=== PATIENT | female | born 1970 | race Caucasian/White ===

== ENCOUNTER → 2022-06-26 | Outpatient (CLI) | payer SELFPAY ==
--- NOTE | 2022-06-26 10:54 | STRESSREP ---
Stress Test Report Date: 06/26/2022 Procedure: Exercise tolerance test/imaging study Indications: Dyspnea Consent: Per the patient Procedure: The patient exercised on a Tone protocol for 4 minutes and 30 seconds achieving a peak heart rate of 155 bpm (92% predicted maximal heart rate) with a peak blood pressure 142/80 mmHg and a peak MET capacity of 7.0 METs. The baseline ECG demonstrated normal sinus rhythm with nonspecific ST changes. The peak exercise ECG demonstrated exaggeration of the baseline ST depression in inferior leads. Consider nondiagnostic in view of baseline changes. There were no cardiac dysrhythmias pretest, during exercise, or recovery. The functional capacity was considered suboptimal. There was no complaints of chest discomfort during exercise or recovery. Patient did however have dyspnea and wheezing with exercise. The examination was discontinued secondary to target heart rate being achieved along with dyspnea/wheezing. The patient was injected with 11.1 mCi of technetium 99m Cardiolite and subsequently rest SPECT Cardiolite nuclear imaging was obtained in the horizontal long, vertical long, and short axis views. Post-exercise, the patient was injected with 33.9 mCi of technetium 99m Cardiolite and subsequently stress SPECT Cardiolite nuclear imaging was obtained in the horizontal long, vertical long, and short axis views. A gated Cardiolite study at peak stress was obtained. Rest and stress SPECT Cardiolite nuclear imaging status post realignment, normalization, and attenuation correction, demonstrates the appearance of relative uniform tracer uptake and myocardial perfusion appearing within normal limits. There is end systolic thickening and brightening. The gated Cardiolite study demonstrates myocardial thickening and inward wall motion. The reported LVEF is 67%. Impression: 1. Technically adequate (percent predicted maximal heart rate greater than 85%) exercise tolerance test 2. Peak exercise ECG with horizontal ST depression in inferior leads. However considered nondiagnostic in view of baseline abnormality. 3. There were no cardiac dysrhythmias pretest, during exercise, or recovery 4. Rest and stress SPECT Cardiolite nuclear imaging demonstrate no fixed or reversible perfusion defects. 5. The gated Cardiolite study reports an LVEF of 67%. This note was generated with [employer] incation software. It may contain incorrect words, spelling, and punctuation that were not noted in checking the note before signing.
== END | disposition home or self-care (01) ==
LOC: CVS 07:04
PROVIDERS: PCP Internal Medicine; Referring Provider Internal Medicine; Visit Provider Internal Medicine
DX: R06.09 Other forms of dyspnea (principal)
CPT/HCPCS: 78452; 93017; A9500; A4216

== ENCOUNTER → 2022-08-05 | Outpatient (CLI) | payer SELFPAY ==
--- NOTE | 2022-08-05 10:50 | ECHOD_ITS ---
Reason For Study: DYSPNEA Procedure This was a 2D Doppler, Color Flow transthoracic echocardiogram. Exam performed in department. Left Ventricle Normal size and thickness. The left ventricular ejection fraction is 65 %. Normal diastology for age. Right Ventricle Normal right ventricle. Atria The left and right atria are normal. Mitral Valve Trivial mitral valve insufficiency. Tricuspid Valve Trivial tricuspid valve insufficiency. Unable to estimate RV systolic pressure due to insufficient tricuspid regurgitant envelope. Aortic Valve Normal aortic valve. Pulmonic Valve The pulmonic valve is not well visualized. Great Vessels Normal sized aortic root. Pericardium/Pleural No pericardial effusion. MMode/2D Measurements & Calculations LVIDd: 4.2 cm IVSd: 0.78 cm Ao root diam: 2.4 cm LVIDs: 2.6 cm LVPWd: 0.50 cm RVDd: 2.8 cm FS: 37.6 % LAV(MOD-bp): 41.2 ml LVAd ap4: 24.5 cm2 SV(MOD-sp4): 37.0 ml LAV(MOD-bp) Indexed: 26.3 ml/m2 LVLd ap4: 7.6 cm LAV(MOD-sp2): 50.8 ml EDV(MOD-sp4): 66.5 ml LAV(MOD-sp4): 33.0 ml EDV(sp4-el): 67.3 ml LVAs ap4: 14.5 cm2 LVLs ap4: 6.0 cm ESV(MOD-sp4): 29.6 ml ESV(sp4-el): 29.7 ml EF(MOD-sp4): 55.5 % EF(sp4-el): 55.9 % SV(sp4-el): 37.6 ml LA A4 area: 14.9 cm2 LA dimension(2D): 3.0 cm RA A4 area: 14.2 cm2 Time Measurements MV dec time: 0.17 sec Doppler Measurements & Calculations MV E max juan: 90.8 cm/sec Lat Peak E' Juan: 15.4 cm/sec Med Peak E' Juan: 11.2 cm/sec MV A max juan: 71.1 cm/sec E/E' lat: 5.9 E/E' med: 8.1 MV E/A: 1.3 MV V2 max: 93.1 cm/sec Ao V2 max: 118.3 cm/sec MV max P.5 mmHg MV dec slope: 569.7 cm/sec2 Ao max P.6 mmHg MV V2 mean: 56.0 cm/sec Ao V2 mean: 84.8 cm/sec MV mean P.4 mmHg Ao mean P.2 mmHg MV V2 VTI: 34.3 cm Ao V2 VTI: 30.5 cm AV (velocity ratio): 0.94 LV V1 max: 116.7 cm/sec PA V2 max: 87.1 cm/sec LV V1 max P.5 mmHg PA V2 mean: 65.8 cm/sec LV V1 mean P.1 mmHg LV V1 mean: 82.1 cm/sec LV V1 VTI: 28.7 cm ECHO/Echo Complete Interpretation Summary The left ventricular ejection fraction is 65 %. Ordering Physician: Sancho Gottlieb Referring Physician: Sancho Gottlieb Performed By: Lisa Mac [facility]
== END | disposition home or self-care (01) ==
LOC: CVS 10:49
PROVIDERS: PCP Internal Medicine; Referring Provider Internal Medicine Cardiovascular Disease; Visit Provider Internal Medicine Cardiovascular Disease
DX: R06.09 Other forms of dyspnea (principal); R07.9 Chest pain, unspecified
CPT/HCPCS: 93306

== ENCOUNTER → 2023-07-06 | Outpatient (CLI) | payer OTHER, SELFPAY ==
--- NOTE | 2023-07-06 06:54 | RAD_ITS ---
HISTORY: Dyspnea on exertion, wheezing, ? tracheal stenosis. TECHNIQUE: XR Chest 2 Views. COMPARISON: 01/04/2009. FINDINGS: CARDIOMEDIASTINAL BORDERS: Cardiac silhouette within normal limits in size. Mediastinal contour unremarkable. LUNGS: Radiographically clear. Mild hyperinflation. PLEURA: No pleural effusion or pneumothorax seen. OSSEOUS STRUCTURES: Unremarkable. RAD/Chest PA and Lateral IMPRESSION: No acute cardiopulmonary process identified. Electronically Signed: Vivienne Delacruz MD at 8:49 EST ,
--- OUTSIDE RECORDS SUMMARY | 2023-07-06 06:57 | XMS RPT_ITS | CCD ---
Author Name Unknown Address [address] [place] [address] Organization [facility] Care Team Providers Care Senior Sales Executive Name Role Phone PHYSICIAN, NONE Primary Care Unavailable LOIS GAFFNEY Consulting Unavailable LAURA SNOW Admitting Unavailable LAURA SNOW Attending Unavailable PHYSICIAN, NONE Primary Care Unavailable CLARK MENDEZ Attending Unavailable ALBERTO ISSA Attending Unavailable PHYSICIAN, NONE Primary Care Unavailable TIAGO MOREIRA Admitting Unavailable TIAGO MOREIRA Attending Unavailable NO, DOCTOR ON Referring Unavailable TIAGO MOREIRA Primary Care Unavailable NO, DOCTOR ON Consulting Unavailable SANDRA [facility] Admitting Unavaila ble SANDRA, [facility] Attending Unavaila ble SANDRA, [facility] Primary Care Unavaila ble NO, DOCTOR ON Consulting Unavailable Problems Problem Classification Problem Date Documented Da te Episodic/Chronic Other fractures (2 sources) Unspecified displaced fracture of second cervical vertebra, initial encounter for closed fracture; Translations: [Unspecified displaced fracture of second cervical vertebra, initial encounter for closed fracture] Onset: 05-18-2018 Episodic Results Test Name Value Interpretation Reference Range Facil ity Encounters Encounter Date Encounter Type Care Provider Facility Start: 02-16-2019 End: 02-16-2019 Patient encounter procedure [facility] Start: 06-21-2018 End: 06-22-2018 Patient encounter procedure ALBERTO ISSA Facility:A Start: 05-21-2018 End: 05-21-2018 Emergency department patient visit NONE PHYSICIAN Facility:A Start: 05-18-2018 End: 05-19-2018 Evaluation and management of inpatient NONE PHYSICIAN Facility:A Start: 05-18-2018 End: 05-18-2018 Emergency department patient visit TIAGO MOREIRA [facility] Payers Date Payer Category Payer Self-pay 1970 Unknown [id number] 1970 Unknown [id number] 1970 Unknown [id number] 1970 Unknown [id number] Unknown [id number] Summary Purpose Family History No Family History Records FoundNo Family History Records FoundNo Family History Records Found Advance Directives No Advanced Directives Records FoundNo Advanced Directives Records FoundNo Advanced Directives Records Found Additional Source Comments INFORMATION SOURCE (unrecogn ized section and content) DATE CREATED AUTHOR AUTHOR'S ORGANIZ ATION 02/18/2019 [facility] DATE CREATED AUTHOR AUTHOR'S ORGANIZ ATION 02/18/2019 [facility] FOR RECORDS PERTAINING TO PATIENTS WHO ARE OR HAVE BEEN ENROLLED IN A CHEMICAL DEPENDENCY/SUBSTANCEABUSE PROGRAM, SOME INFORMATION MAY BE OMITTED. This clinical summary was aggregated from multiple sources. Caution should be exercised in using it in the provision of clinical care. This summary normalizes information from multiple sources, and as a consequence, information in this document may materially change the coding, format and clinical context of patient data. In addition, data may be omitted in some cases. CLINICAL DECISIONS SHOULD BE BASED ON THE PRIMARY CLINICAL RECORDS. [employer] [facility]. provides no warranty or guarantee of the accuracy or completeness of information in this document.
== END | disposition home or self-care (01) ==
LOC: PSN 06:53
PROVIDERS: PCP Internal Medicine; Referring Provider Internal Medicine; Visit Provider Internal Medicine
DX: R06.09 Other forms of dyspnea (principal); R06.2 Wheezing
CPT/HCPCS: 71046; 94060; 94726; 94729

== ENCOUNTER → 2023-11-03 | Outpatient (CLI) | payer OTHER, SELFPAY ==
--- NOTE | 2023-11-03 07:20 | CT_ITS ---
EXAM: CT NECK WITHOUT INTRAVENOUS CONTRAST CLINICAL INDICATION: STRIDOR TECHNIQUE: Helically acquired images were obtained of the neck without intravenous contrast. This CT exam was performed using one or more of the following dose reduction techniques: automated exposure control, adjustment of the mA and/or kV according to patient size, and/or use of iterative reconstruction technique. COMPARISON: No relevant prior studies available. FINDINGS: NASOPHARYNX: Normal. SUPRAHYOID NECK: Normal. Oropharynx, oral cavity, parapharyngeal space and retropharyngeal space are unremarkable. INFRAHYOID NECK: 6 mm soft tissue prominence of the right side of the larynx may represent polyp. Endoscopic evaluation is recommended. SUBMANDIBULAR/PAROTID GLANDS: Salivary glands are normal in size. THYROID: Normal. No thyroid nodules or calcification. BONES/JOINTS: No suspicious lytic or blastic abnormality. SOFT TISSUES: Normal. VASCULATURE: No acute findings. LYMPH NODES: Normal. No lymphadenopathy. LUNG APICES: Unremarkable as visualized. CT/Soft Tissue Neck without Contr IMPRESSION: Question of a 6 mm right laryngeal polyp. Endoscopic evaluation recommended. Electronically Signed: Juan Francois MD at 14:50 EDT ,
--- NOTE | 2023-11-03 07:20 | CT_ITS ---
INDICATION: Worsening shortness of breath EXAMINATION: CT CHEST WITHOUT CONTRAST - CT Chest W/O Contrast Injection TECHNIQUE: Helically acquired images were obtained of the chest. A radiation dose optimization technique was used for this scan. IV Contrast dosage and agent: None. COMPARISON: None. FINDINGS: LUNGS, PLEURA AND LARGE AIRWAYS: Lung windows show the lungs to be normally expanded. No organized infiltrate or effusion, no suspicious noncalcified mass or nodule. No pleural effusion or thickening. No pneumothorax. THYROID: No thyroid lesions. HEART AND PERICARDIUM: Heart size is normal. No pericardial effusion. CORONARY ARTERIES: Coronary artery calcification is not seen. VESSELS: Thoracic aorta is not dilated. MEDIASTINUM AND EDVIN: No mediastinal or hilar adenopathy. Esophagus is unremarkable. No hiatal hernia. UPPER ABDOMEN: No acute pathology. BONES: No suspicious lytic or blastic abnormality. CT/Chest without Contrast IMPRESSION: No acute pulmonary process No suspicious adenopathy Normal osseous structures Electronically Signed: Rigo Chambers MD at 10:57 EDT ,
== END | disposition home or self-care (01) ==
PROVIDERS: PCP Internal Medicine; Referring Provider Internal Medicine Pulmonary Disease; Visit Provider Internal Medicine Pulmonary Disease
DX: R06.00 Dyspnea, unspecified (principal); R06.1 Stridor
CPT/HCPCS: 70490; 71250

== ENCOUNTER 2023-11-20 14:59 | Day surgery (SDC) | payer OTHER, SELFPAY ==
[2023-11-20] VITALS (8 sets, daily range): BP systolic 133–136; BP diastolic 82–91; PULSE 70–84; RESP 16; TEMP 36.7–37.1; O2SAT 97–100; BMI 23.2
[2023-11-20] MEDS: Lactated Ringers 1,000 ML 15 ML IV (15:33)
--- NOTE | 2023-11-20 15:50 | PRE.ANES_ITS ---
ASA Classification* ASA Classification ASA Classification: 2 and 3 Assessment & Plan Anesthesia* Anesthesia Assessment Anesthesia Assessment: Discussed sedation and/or anesthesia options, risks, benefits, and alternatives with patient/parents/legal guardian/POA. Questions invited. The patient/parents/legal guardian/POA seems to understand and agrees to proceed with anesthesia plan. Reviewed the physical assessment, medical history, allergy history and patient home medications list prior to surgery/procedure/anesthetic and documented any changes. Performed airway and anesthesia risk assessments. Anesthesia Type Anesthesia Type: MAC History Source History Obtained from:: Patient and Chart Anesthesia Focused Assessment* Temperature: 98.1 F Pulse Rate: 70 Blood Pressure: 134/84 Respiratory Rate: 16 Pulse Ox: 99 Oxygen Delivery Method: Room Air Airway Assessment Mouth opens: >3 cm Mallampati Score: I Teeth Condition: Intact (Metal permanent retainer behind bottom teeth) Neck Range of motion (ROM): Limited ROM (slightly decreased extension) Pertinent Findings EKG Pertinent Findings:: 07/15/2022. SR. Inverted T in precordial leads Stress Test Pertinent Findings:: 06/26/22 No ischemia. 67% ECHO Pertinent Findings:: 08/05/2022 65%. Normal valves Consults Pertinent Findings:: 07/15/22 Bull. ZAVALA - stress is negative. Status post RFA for arrhythmia - now Sinus rhythm Focused Labs Anesthesia Preop lab: CBC WBC 6.4 K/mm3 (4.4-11.0) 10/12/13 15:49 RBC 4.17 M/mm3 (4.2-5.4) L 10/12/13 15:49 Hgb 13.0 g/dl (12.0-15.0) 10/12/13 15:49 Hct 38.7 % (37-47) 10/12/13 15:49 Plt Count 224 K/mm3 (150-450) 10/12/13 15:49 CHEMISTRY Potassium 4.3 mmol/L (3.5-5.1) 10/12/13 15:49 Sodium 139 mmol/L (136-145) 10/12/13 15:49 Magnesium 2.0 mg/dL (1.8-2.4) 10/12/13 15:49 BUN 12 mg/dL (7-18) 10/12/13 15:49 Creatinine 0.7 mg/dL (0.6-1.0) 10/12/13 15:49 Glucose 85 mg/dL (70-110) 10/12/13 15:49 TSH 3.18 uIU/mL (0.358-3.74) 10/12/13 15:49 COAG Pre-Assessment Diagnosis/Proposed Procedure Planned Operative Procedure(s): BRONCHOSCOPY Anesthesia History Anesthesia History - floor covering installer: Anesthesia History - floor covering installer Hx Hospitalization No 11/18/23 09:35 Any Problems With Anesthesia No 11/18/23 09:35 Cholinesterase deficiency No 11/18/23 09:35 You/Your Family Experience No 11/18/23 09:35 fever (hyperthermia) with Relationship Recent Exposure to Contagious No 11/20/23 15:18 Disease Does patient have nerve No 11/18/23 09:35 stimulator Patient instructed to have device shut off --Does patient have Pacemaker No 11/20/23 15:18 or ICD? When Was Last Pacemaker Check QUESTION #4 FULL TEXT: You/Your Family Experience fever (hyperthermia) with Anesthesia Last Oral Intake Last Oral intake: Last Oral Intake NPO since 23:00 11/20/23 15:18 Meds taken in AM with sips of No 11/20/23 15:18 water? Meds patient instructed to take am of surgery PONV PONV - floor covering installer: PONV - floor covering installer Female Yes 11/18/23 09:35 HX of Motion Sickness No 11/18/23 09:35 HX of N/V After Surgery No 11/18/23 09:35 Non-Smoker Yes 11/18/23 09:35 Duration of Surgery greater No 11/18/23 09:35 than 60 minutes Number of Risk Factors 2 11/18/23 09:35 PONV Score Moderate Risk 11/18/23 09:35 Height & Weight Height & Weight: Anesthesia: Height & Weight Height 5 ft 2 in 11/20/23 15:18 Weight: 57.7 kg 11/20/23 15:18 Body Mass Index (BMI) 23.2 11/20/23 15:18 Respiratory Assessment Respiratory Assessment - floor covering installer: Respiratory Tract Infection Hx - floor covering installer Hx Respiratory Tract Infection No 11/18/23 09:35 STOP Sleep Apnea STOP Sleep Apnea - floor covering installer: STOP Sleep Apnea - floor covering installer Hx Hypertension No 11/18/23 09:35 Hx Sleep Apnea No 11/18/23 09:35 CPAP BIPAP Do you snore loudly (louder No 11/18/23 09:35 than talking or can be heard Do you often feel tired/ Yes 11/18/23 09:35 fatigued/ sleepy during daytime? Has anyone observed you stop No 11/18/23 09:35 breathing during sleep? STOP Results Negative 11/18/23 09:35 QUESTION #5 FULL TEXT : Do you snore loudly (louder than talking or can be heard through closed doors)? 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 Specify any problems Hx of Preganancy in last 3 No 11/18/23 09:35 Months Nurse Filling Out Transfusion DSCHRIBER 11/18/23 09:35 & Questions: Date: 11/18/23 11/18/23 09:35 Time: 09:37 11/18/23 09:35 Patient unable to answer at this time (ie. confused, unrespo /Reproduction History /Reproductive History - floor covering installer: /Reproductive Hx- floor covering installer Hx Now No 11/18/23 09:35 Gestational Age (in weeks): EDC: Hx Hx Para Hx Section SAB No 11/18/23 09:35 Active Medications Active Medications: Current Medications Generic Name Dose Route Start Last Admin Trade Name Freq PRN Reason Stop Dose Admin Lactated Ringer's 1,000 mls @ 15 mls/hr 11/20/23 15:15 11/20/23 15:33 IV 15 mls/hr .Q48H SELVIN Administration PFSH Medical History Wears glasses Low iron Restless legs Injury of head and neck Blackout History of hiatal hernia Heartburn Non-smoker Shortness of breath on exertion Leg cramps History of stress test History of echocardiogram Cardiology follow-up encounter Paroxysmal supraventricular tachycardia Throat tightness Dyspnea on exertion Vitamin D deficiency Lipid screening Hot flashes Racing heart beat History of vaginal delivery Hiatal hernia Hypoglycemia Home Medications ?Medication ?Instructions ?Recorded ?Last Taken ?Type multivitamin 1 tab PO DAILY 05/14/21 Unknown History vitamin E (dl, acetate) 45 mg (100 45 mg PO DAILY 07/15/22 Unknown History unit) capsule Allergy/AdvReac Type Severity Reaction Status Date / Time No Known Allergies Allergy Verified 11/18/23 09:34 Family History Grandmother Heart disease Ovarian cancer Father Kidney disease Grandfather Respiratory disease Surgical History H/O tubal ligation History of radiofrequency ablation procedure for cardiac arrhythmia (~2008) Social History Smoking Status: Never smoker alcohol intake: never substance use type: does not use caffeine: No what type of physical activity do you participate in: walking Review of Systems (Anesthesia) ROS Narrative System reviewed and no additional complaints, except as documented.
[2023-11-20] MEDS: Lidocaine 2% (5ml sdv) 5 ML VIAL.MPF (16:19)
[2023-11-20] MEDS: Lidocaine Jelly 2% 20 ML Syringe (URO-JET) 1 APPLIC (16:19)
[2023-11-20] MEDS: Phenylephrine 0.25% 15 ML NASAL.SRY 15 SPRAY NASAL (16:19)
--- NOTE | 2023-11-20 16:46 | OP.BRONCH_ITS ---
Patient Name: Kristin Sow Procedure Date: 11/20/2023 3:37 PM Date of : 1970 Age: 53 Procedure: Bronchoscopy Indications: Suspicious trachea lesion Providers: Masoud Kohli MD Medicines: Lidocaine 2% applied to cords 5 mL Complications: No immediate complications Procedure: Pre-Anesthesia Assessment: - A History and Physical has been performed. The patient's medications, allergies and sensitivities have been reviewed. - The risks and benefits of the procedure and the sedation options and risks were discussed with the patient. All questions were answered and informed consent was obtained. After I obtained informed consent, the scope was passed under direct vision. Throughout the procedure, the patient's blood pressure, pulse, and oxygen saturations were monitored continuously. The bronchoscope was introduced through the right nostril and advanced to the tracheobronchial tree. The procedure was accomplished with moderate difficulty due to abnormal anatomy. Successful completion of the procedure was aided by adding supplemental oxygen. At the scope occluded the airway I was not able to spend more than 1 min below the lesion in the trachea. Upper left and right mainstem visability only. Not safely able to access lower airway sub q lesions. Moderate Sedation: An independent trained observer was present and continuously monitored the patient. Findings: Trachea/Angelique Abnormalities: A partially obstructing (about 70% obstructed) mass was found proximally in the subglottic area. The mass was large and circumferential. The lesion was successfully traversed. Impression: - Suspicious trachea lesion - A circumferential mass was found in the subglottic area. This lesion is doubtfully malignant. - No specimens collected. Recommendation: - Await test results. - Await test results. Procedure Code(s): --- Professional --- 22745, Bronchoscopy, rigid or flexible, including fluoroscopic guidance, when performed; diagnostic, with cell washing, when performed (separate procedure) Diagnosis Code(s): --- Professional --- R93.89, Abnormal findings on diagnostic imaging of other specified body structures J98.9, Respiratory disorder, unspecified CPT copyright 2021 [employer]. All rights reserved. The codes documented in this report are preliminary and upon lyric writer review may be revised to meet current compliance requirements. MD Masoud Ragsdale MD 11/20/2023 4:46:31 PM This report has been signed electronically. Number of Addenda: 0 Note Initiated On: 11/20/2023 3:37 PM
--- NOTE | 2023-11-20 16:58 | PCM.POST.ANE ---
Anesthesia: Postop Eval I Current Vital Signs Temperature: 98.1 F Pulse Rate: 84 Blood Pressure: 134/87 Respiratory Rate: 16 Pulse Ox: 100 Oxygen Delivery Method: Simple Mask Oxygen Flow Rate (L/min): 6 Assessment Airway patent: Yes Spontaneous unlabored respirations: Yes Mental status: Awake and Calm nausea: No Vomiting: No Anesthesia Complication: No Fluid Hydration Crystalloid volume administer (ml): 400 Total IV fluid infused: 400 Progress Note Anesthesia document: Postop Eval 1 completed: Yes
--- NOTE | 2023-11-20 17:41 | POSTOPAN2_ITS ---
Anesthesia Postop Eval I Sum Postop Eval Completion status Anesthesia document: Postop Eval 1 completed: Yes Anesthesia Postop Eval I Summary Anesthesia Postop Eval I Summary: Anesthesia Postop Eval I: Assessment Summary Airway patent Yes 11/20/23 16:58 HEAVY DUTY TRUCK MECHANIC.[email or web address] Spontaneous unlabored Yes 11/20/23 16:58 HEAVY DUTY TRUCK MECHANIC.RYAN respirations Mental status Awake,Calm 11/20/23 16:58 HEAVY DUTY TRUCK MECHANIC.RYAN nausea No 11/20/23 16:58 HEAVY DUTY TRUCK MECHANIC.RYAN Vomiting No 11/20/23 16:58 HEAVY DUTY TRUCK MECHANIC.RYAN Anesthesia Postop Eval I: Fluid Summary Crystalloid volume administer 400 11/20/23 16:58 HEAVY DUTY TRUCK MECHANIC.RYAN (ml) Colloids volume administered ( ml) Blood Product volume administered (ml) Total IV fluid infused 400 11/20/23 16:58 HEAVY DUTY TRUCK MECHANIC.RYAN Anesthesia Postop Eval I: Summary Notes Anesthesia Complication No 11/20/23 16:58 HEAVY DUTY TRUCK MECHANICSELMA Anesthesia Complication Comment: Post-operative progress note Anesthesia: Postop Eval II Evaluation Mental status: Awake Pain Level: 0 nausea: No Vomiting: No
--- NOTE | 2023-11-20 17:41 | PCM.POSTANE2 ---
Anesthesia Postop Eval I Sum Postop Eval Completion status Anesthesia document: Postop Eval 1 completed: Yes Anesthesia Postop Eval I Summary Anesthesia Postop Eval I Summary: Anesthesia Postop Eval I: Assessment Summary Airway patent Yes 11/20/23 16:58 PROGRAM DIRECTOR GROUP WORK.[email or web address] Spontaneous unlabored Yes 11/20/23 16:58 PROGRAM DIRECTOR GROUP WORK.RYAN respirations Mental status Awake,Calm 11/20/23 16:58 PROGRAM DIRECTOR GROUP WORK.RYAN nausea No 11/20/23 16:58 PROGRAM DIRECTOR GROUP WORK.YRAN Vomiting No 11/20/23 16:58 PROGRAM DIRECTOR GROUP WORK.RYAN Anesthesia Postop Eval I: Fluid Summary Crystalloid volume administer 400 11/20/23 16:58 PROGRAM DIRECTOR GROUP WORK.RYAN (ml) Colloids volume administered ( ml) Blood Product volume administered (ml) Total IV fluid infused 400 11/20/23 16:58 PROGRAM DIRECTOR GROUP WORK.RYAN Anesthesia Postop Eval I: Summary Notes Anesthesia Complication No 11/20/23 16:58 PROGRAM DIRECTOR GROUP WORKSELMA Anesthesia Complication Comment: Post-operative progress note Anesthesia: Postop Eval II Evaluation Mental status: Awake Pain Level: 0 nausea: No Vomiting: No
== END 2023-11-20 17:34 | disposition home or self-care (01) ==
LOC: EN 14:59 → AC 15:00
PROVIDERS: PCP Internal Medicine; Referring Provider Internal Medicine; Visit Provider Internal Medicine Pulmonary Disease
PROC: 0BJ08ZZ Inspection of Tracheobronchial Tree, Via Natural or Artificial Opening Endoscopic (ICD-10-PCS; CPT 31622; principal; 2023-11-20 15:45)
DX: J39.8 Other specified diseases of upper respiratory tract (principal)
CPT/HCPCS: 31622; J7120; J2405